=== PATIENT | male | born 1950 | race Two or more races ===

== ENCOUNTER 2017-07-27 09:14 | Outpatient (CLI) | payer OTHER ==
[~2017-07-27 09:14] MED LIST: CIPRO500 MG PO; DICY20TA PO; GLIMEPIRIDE4 MG PO; INVOKANA100 MG PO; LOSARTAN-HCTZ1 EAC2 PO; LOVAZA1 G PO; METROPROLOL PO; NEURIN SL; NEURONTIN300 MG PO; ONGLYZA5 MG PO; PERCOCET 5/321 UDTAB PO; POLY119PG PO; PROTONIX40 MG PO; SURFAK240 M1 PO; ULTRACET PO
== END 2017-07-27 16:42 | disposition home or self-care (01) ==
LOC: SONOGRAMA 09:14
DX: M12.812 Other specific arthropathies, not elsewhere classified, left shoulder (principal); M19.012 Primary osteoarthritis, left shoulder

== ENCOUNTER 2017-07-27 09:21 | Outpatient (CLI) | payer OTHER | END 2017-07-27 16:43 | disposition home or self-care (01) | LOC: RAD 09:21 | DX: M12.812 Other specific arthropathies, not elsewhere classified, left shoulder (principal); M12.811 Other specific arthropathies, not elsewhere classified, right shoulder; M47.892 Other spondylosis, cervical region ==

== ENCOUNTER 2019-02-19 10:45 | Outpatient (CLI) | payer OTHER | END 2019-02-19 10:47 | disposition home or self-care (01) | LOC: MAMO-SONO 10:45 → SONOGRAMA 10:45 | DX: R10.84 Generalized abdominal pain (principal) ==